=== PATIENT | female | born 1975 | race Hispanic/Latino ===

== ENCOUNTER 2023-09-30 14:26 | Emergency (ER) | payer OTHER ==
--- NOTE | 2023-09-30 14:36 | EDPHYS ---
Physician Documentation [facility] Name: Kya Li Age: 47 yrs Sex: Female : 1975 Arrival Date: 09/30/2023 Time: 14:26 Bed IW2 Private MD: ED Physician Paul Morataya HPI: 09/30 14:34 This 47 yrs old Female presents to ER via Ambulatory with complaints of Dog jh7 Bite. 14:34 The patient was bitten on the palmar aspect of right forearm. Onset: The jh7 symptoms/episode began/occurred this morning. Animal information: The animal was reported to appear healthy. is unknown, Animal control has been notified. Secondary to the bite the patient reports a puncture wound, that is superficial. Associated signs and symptoms: Pertinent positives: pain at site, Pertinent negatives: bony tenderness, erythema at site, fever, motor deficit, numbness distal to wound. 14:34 pt was bitten by neighbor's dog while taking out the trash. She sustained a superficial jh7 puncture wound to her right forearm.. Historical: - Allergies: 14:37 No Known Allergies; nj1 - PMHx: 14:37 None; nj1 - PSHx: 14:37 None; nj1 - Immunization history:: Client reports having NOT received the Covid vaccine. - Social history:: Smoking status: Patient denies any tobacco usage or history of. ROS: 14:34 Constitutional: Negative for fever, chills, and weight loss, Cardiovascular: Negative jh7 for chest pain, palpitations, and edema, Respiratory: Negative for shortness of breath, cough, wheezing, and pleuritic chest pain, Abdomen/GI: Negative for abdominal pain, nausea, vomiting, diarrhea, and constipation, MS/Extremity: Negative for injury and deformity, Neuro: Negative for headache, weakness, numbness, tingling, and seizure, 14:34 Skin: Positive for puncture, of the palmar aspect of right forearm, 14:34 All other systems are negative, Exam: 14:34 Constitutional: This is a well developed, well nourished patient who is awake, alert, jh7 and in no acute distress. Head/Face: Normocephalic, atraumatic. Eyes: Pupils equal round and reactive to light, extra-ocular motions intact. Lids and lashes normal. Conjunctiva and sclera are non-icteric and not injected. Cornea within normal limits. Periorbital areas with no swelling, redness, or edema. Neck: Trachea midline, no thyromegaly or masses palpated, and no cervical lymphadenopathy. Supple, full range of motion without nuchal rigidity, or vertebral point tenderness. No Meningismus. Cardiovascular: Regular rate and rhythm with a normal S1 and S2. No gallops, murmurs, or rubs. Normal PMI, no JVD. No pulse deficits. Respiratory: Lungs have equal breath sounds bilaterally, clear to auscultation and percussion. No rales, rhonchi or wheezes noted. No increased work of breathing, no retractions or nasal flaring. MS/ Extremity: Pulses equal, no cyanosis. Neurovascular intact. Full, normal range of motion. Neuro: Awake and alert, GCS 15, oriented to person, place, time, and situation. Motor strength 5/5 in all extremities. Sensory grossly intact. Normal gait. 14:34 Skin: injury, puncture(s), that are superficial, of the palmar aspect of right forearm, Vital Signs: 14:34 BP 141 / 95; Pulse 88; Resp 16; Temp 97.6; Pulse Ox 100% on R/A; Weight 38.56 kg; nj1 Height 4 ft. 11 in. ; Pain 5/10; 14:34 Body Mass Index 17.17 (38.56 kg, 149.86 cm) [facility] 14:34 Pain Scale: Adult [facility] MDM: 14:32 Patient medically screened. ec2 14:35 Differential diagnosis: Puncture wound. Data reviewed: vital signs, nurses notes. I 7 considered the following discharge prescriptions or medication management in the emergency department Medications were administered in the Emergency Department. See MAR. Counseling: I had a detailed discussion with the patient and/or guardian regarding the historical points, exam findings, and any diagnostic results supporting the discharge/admit diagnosis, to return to the emergency department if symptoms worsen or persist or if there are any questions or concerns that arise at home. Administered Medications: 14:55 Not Given (Product Out of Stock): tetanus-diphtheria toxoidadult 0.5 ml IM once; [facility] Provide Vaccine Information Statement (VIS). 14:57 Drug: Boostrix Tdap IM 0.5 ml IM once; as a single dose Route: IM; Site: right deltoid; nj1 Disposition Summary: 09/30/23 14:36 Discharge Ordered Notes: Location: Home [facility] Problem: new [facility] Symptoms: are unchanged [facility] Condition: Stable [facility] Diagnosis - Bitten by dog [facility] - Puncture wound without foreign body of forearm [facility] Followup: [facility] - With: Private Physician - When: 2 - 3 days - Reason: Recheck today's complaints Discharge Instructions: - Discharge Summary Sheet [facility] - Animal Bite, Adult [facility] Forms: - Medication Reconciliation Form [facility] - Thank You Letter [facility] - Antibiotic Education [facility] - Patient Portal Instructions [facility] - Leadership Thank You Letter [facility] Prescriptions: - Augmentin 875-125 mg Oral Tablet - take 1 tablet ORAL route every 12 hours for 10 days; 20 tablet; Refills: 0, [facility] Product Selection Permitted Signatures: Sue Kimble FNP FNP 7 Mary Chau RN RN nj1 Paul Morataya MD MD ec2
--- NOTE | 2023-09-30 15:02 | ER ---
Nurse's Notes [facility] Name: Kya Li Age: 47 yrs Sex: Female : 1975 Arrival Date: 09/30/2023 Time: 14:26 Bed IW2 Private MD: Diagnosis: Bitten by dog;Puncture wound without foreign body of forearm Presentation: 09/30 14:34 Chief complaint: Patient states: Dog bite to right forearm today while putting the nj1 trash out. [place] [employer] notified. Coronavirus screen: Vaccine status: Patient reports being unvaccinated. Ebola Screen: Patient denies travel to an Ebola-affected area in the 21 days before illness onset. Risk Assessment: Do you want to hurt yourself or someone else? Patient reports no desire to harm self or others. Onset of symptoms was September 30, 2023. 14:34 Method Of Arrival: Ambulatory [facility] 14:34 Acuity: GINGER 4 [facility] 14:34 Initial Sepsis Screen: Does the patient meet any 2 criteria? No. Patient's initial [facility] sepsis screen is negative. Does the patient have a suspected source of infection? No. Patient's initial sepsis screen is negative. Triage Assessment: 14:38 Bite description: bite sustained to palmar aspect of right forearm by a dog, animal nj1 information: vaccination(s) is unknown. General: Appears in no apparent distress. comfortable, Behavior is calm, cooperative, appropriate for age. Pain: Complains of pain in palmar aspect of right forearm Pain currently is 5 out of 10 on a pain scale. Neuro: Level of Consciousness is awake, alert, obeys commands, Oriented to person, place, time, situation. Cardiovascular: Patient's skin is warm and dry. Respiratory: Airway is patent Respiratory effort is even, unlabored. Derm:. Derm: Bruising that is dark purple, on palmar aspect of right forearm. Injury Description: Bite sustained to palmar aspect of right forearm caused by a dog, is superficial, was sustained 4-6 hours ago. Historical: - Allergies: 14:37 No Known Allergies; nj1 - PMHx: 14:37 None; nj1 - PSHx: 14:37 None; nj1 - Immunization history:: Client reports having NOT received the Covid vaccine. - Social history:: Smoking status: Patient denies any tobacco usage or history of. Screenin:00 [facility] ED Fall Risk Assessment (Adult) Score/Fall Risk Level 0 - 2 = Low Risk [facility] Oriented to surroundings, Maintained a safe environment, Hourly rounding (assess needs \T\ fall precautionary measures) done. Abuse screen: Denies threats or abuse. Denies injuries from another. Nutritional screening: No deficits noted. Tuberculosis screening: No symptoms or risk factors identified. Vital Signs: 14:34 BP 141 / 95; Pulse 88; Resp 16; Temp 97.6; Pulse Ox 100% on R/A; Weight 38.56 kg; nj1 Height 4 ft. 11 in. ; Pain 5/10; 14:34 Body Mass Index 17.17 (38.56 kg, 149.86 cm) [facility] 14:34 Pain Scale: Adult [facility] ED Course: 14:31 Patient arrived in ED. mr 14:32 Paul Morataya MD is Attending Physician. ec2 14:34 [facility] Kimble [facility]NP [facility] 2 14:36 Paul Morataya MD is Attending Physician. [facility] 14:37 Triage completed. nj 14:38 Arm band placed on left wrist. nj1 15:00 Patient has correct armband on for positive identification. Adult w/ patient. Provided [facility] Education on: discharge instructions. 15:00 No provider procedures requiring assistance completed. Patient did not have IV access [facility] during this emergency room visit. Administered Medications: 14:55 Not Given (Product Out of Stock): tetanus-diphtheria toxoidadult 0.5 ml IM once; [facility] Provide Vaccine Information Statement (VIS). 14:57 Drug: Boostrix Tdap IM 0.5 ml IM once; as a single dose Route: IM; Site: right deltoid; [facility] Medication: 14:59 Vaccine Information Statement (VIS) provided today. Questions and/or concerns [facility] addressed. VIS edition date: June 15, 2021. Outcome: 14:36 Discharge ordered by . [facility] 15:00 Discharged to home ambulatory, with family, with friend, [facility] 15:00 Condition: stable 15:00 Discharge instructions given to patient, family, Instructed on discharge instructions, follow up and referral plans. medication usage, wound care, Demonstrated understanding of instructions, follow-up care, medications, wound care, 15:01 Patient left the ED. [facility] Signatures: So Aquino, Reg Reg mr Sue Kimble, PRIMARY CLINICIAN PRIMARY CLINICIAN jh7 Mary Chau, RADHA RN nj1 Paul Morataya MD MD ec2 Corrections: (The following items were deleted from the chart) 14:54 14:34 38.56 kg; Height 4 ft. 11 in.; BMI: 17.1; Pain 5/10, Adult; nj1 nj1
[2023-09-30] MEDS ORDERED: TDAP (DIPHTH,PERTUSS(ACELL),TET VAC) 0.5 ML VIAL IMVAC ONE (15:04)
[2023-09-30 15:44] VITALS: BP 141/95; TEMP 97.6; O2SAT 100
== END 2023-09-30 15:01 | disposition home or self-care (01) ==
LOC: ER 14:26
DX: S51.851A Open bite of right forearm, initial encounter (principal); W54.0XXA Bitten by dog, initial encounter; Y92.008 Other place in unspecified non-institutional (private) residence as the place of occurrence of the external cause
CPT/HCPCS: 96372; 99284